=== PATIENT | female | born 1955 | race Two or more races ===

== ENCOUNTER → 2024-11-16 | Outpatient (CLI) | payer MEDICAID, SELFPAY ==
--- NOTE | 2024-11-16 11:45 | XR_ITS ---
Examination: Wrist, right 3 views Technique: Wrist AP, oblique, lateral 3 views Date and time of exam: November 16, 2024 1157 hours INDICATIONS: Decreased range of motion right wrist 10 years FINDINGS: Severe osteopenia Patient is status post radiocarpal fusion, as well as carpal carpal fusion No acute fracture Advanced narrowing intercarpal joints and first carpometacarpal joint IMPRESSION: Wrist fusion with satisfactory alignment
--- NOTE | 2024-11-16 11:47 | XR_ITS ---
Examination: Hand, right 3 views Technique: Hand AP, oblique, lateral 3 views Date and time of exam: November 16, 2024 1157 hours INDICATIONS: Decreased range of motion right hand and wrist pain years FINDINGS: Radiocarpal and intercarpal fusion Severe osteopenia Subluxations involving the second third and fourth metacarpal phalangeal joints with erosions distal metacarpals at these levels Advanced narrowing first carpometacarpal joint No acute fracture IMPRESSION: Severe osteopenia Extensive wrist fusions Erosions distal second third and fourth metacarpals with subluxations at these levels
== END | disposition home or self-care (01) ==
PROVIDERS: PCP Obstetrics & Gynecology
DX: M24.631 Ankylosis, right wrist (principal); M85.841 Other specified disorders of bone density and structure, right hand
CPT/HCPCS: 73110; 73130